=== PATIENT | female | born 1945 | race Two or more races ===

== ENCOUNTER 2020-06-23 17:09 | Inpatient (IN) | payer OTHER ==
[~2020-06-23] VITALS: Ht 154.9 cm; Wt 50.2 kg
[2020-06-23 18:32] LABS: Basophils # (auto) 0.1 10 ^3/uL (0-0.2); Basophils % (auto) 0.7 % (0.0-2.0); Eosinophils # (auto) 0 10 ^3/uL (0-0.8); Eosinophils % (auto) 0.4 % (0.0-7.0); Hematocrit 33.2 % (36.0-46.0); Lymphocytes # (auto) 1.2 10 ^3/uL (0.4-5.4); Lymphocytes % (auto) 13.2 % (10.0-50.0); Mean Corpuscular Hemoglobin 36.5 pg (28.0-32.0); Mean Corpuscular Hgb Conc. 33.2 g/dL (32.0-36.0); Mean Corpuscular Volume 109.9 fL (80.0-100.0); Monocytes # (auto) 0.6 10 ^3/uL (0-1.3); Monocytes % (auto) 6.5 % (0.0-12.0); Neutrophils # (auto) 6.9 10 ^3/uL (1.6-8.6); Neutrophils % (auto) 79.2 % (37.0-80.0); Nucleated Red Blood Cells % 0.1 %; Platelet Count (auto) 203 10^3/uL (140-450); Red Blood Cells 3.02 10^6/uL (4.0-5.20); Red Cell Distribution Width 15.1 % (11.8-14.3); White Blood Cell 8.7 10^3/uL (4.4-10.8)
[2020-06-23 18:51] LABS: Albumin 3.6 g/dL (3.4-5.0); Anion Gap 12 (5-15); Blood Urea Nitrogen 41 mg/dL (7-18); Calcium 8.5 mg/dL (8.5-10.1); Chloride 114 mmol/L (98-107); Glucose 105 mg/dL (74-106); Potassium 4.1 mmol/L (3.5-5.1); Sodium 135 mmol/L (136-145)
[2020-06-23 18:59] LABS: Alanine Aminotransferase 21 U/L (13-56); Alkaline Phosphatase 111 U/L (45-117); Aspartate Aminotransferase 23 U/L (15-37); Bilirubin, Total 0.2 mg/dL (0.2-1.0); GFR African American 19 mL/min; GFR Non-African American 15 mL/min
[2020-06-23 19:25] LABS: Carbon Dioxide 9 mmol/L (21-32)
[2020-06-23] MEDS ORDERED: SODIUM BICARBONATE 8.4 % INJ 50ML VIAL IV ONE ×2 (20:00)
[2020-06-23] MEDS ORDERED: SODIUM CHLORIDE 0.9% 1,000 ML IV ONE (20:15)
[2020-06-23 21:33] LABS: Urine Bacteria FEW /hpf (None Seen); Urine Blood 1+ /uL (Negative); Urine Specific Gravity 1.014 (1.001-1.035); Urine WBC 62 /hpf (0 - 5)
[2020-06-23] MEDS ORDERED: cefTRIAXone 1GM/50ML D5W 50 ML IV ONE (22:15)
[2020-06-23 22:21] LABS: INR 0.97 (0.9-1.15); Partial Thromboplastin Time 33.6 sec (23.0-31.2)
[2020-06-23] MEDS ORDERED: DOCUSATE SOD 100 MG CAP PO PRN (22:45)
[2020-06-23] MEDS ORDERED: SODIUM CHLORIDE 0.9% 1,000 ML IV SCH (22:45)
[2020-06-23] MEDS ORDERED: ONDANSETRON HCL 4 MG/2 ML VIAL IV PRN (22:45)
[2020-06-23] MEDS ORDERED: ACETAMINOPHEN 325 MG TAB PO PRN (22:45)
[2020-06-23] MEDS: cefTRIAXone 1GM/50ML D5W 50 ML IV SCH (22:45)
[2020-06-23 23:29] LABS: Amphetamine Screen, Urine NEGATIVE (NEGATIVE); Barbiturate Scree,Urine NEGATIVE (NEGATIVE); Benzodiazephine Screen, Urine NEGATIVE (NEGATIVE); Cannabinoid Screen, Urine NEGATIVE (NEGATIVE); Cocaine Screen, Urine NEGATIVE (NEGATIVE)
[2020-06-23 23:43] LABS: Alcohol, Urine < 3.0 mg/dL (0-10); Opiate Scree,Urine POSITIVE (NEGATIVE); Phencyclidine Screen, Urine NEGATIVE (NEGATIVE)
[2020-06-24] MEDS ORDERED: levETIRAcetam 500 MG/5ML INJ IV ONE (00:19)
[2020-06-24] MEDS ORDERED: LORazepam 2MG/ML-1ML VIAL IV PRN (01:45)
[2020-06-24 07:34] LABS: Basophils # (auto) 0 10 ^3/uL (0-0.2); Eosinophils # (auto) 0 10 ^3/uL (0-0.8); Hemoglobin 9.2 g/dL (12.2-16.2); Lymphocytes # (auto) 0.2 10 ^3/uL (0.4-5.4); Lymphocytes % (auto) 2.2 % (10.0-50.0); Monocytes # (auto) 0.4 10 ^3/uL (0-1.3); Neutrophils # (auto) 8.9 10 ^3/uL (1.6-8.6); Red Cell Distribution Width 14.7 % (11.8-14.3); White Blood Cell 9.5 10^3/uL (4.4-10.8)
[2020-06-24 07:35] LABS: Basophils % (auto) 0.5 % (0.0-2.0); Eosinophils % (auto) 0.4 % (0.0-7.0); Hematocrit 27.9 % (36.0-46.0); Mean Corpuscular Volume 109.2 fL (80.0-100.0); Monocytes % (auto) 4.1 % (0.0-12.0); Neutrophils % (auto) 92.8 % (37.0-80.0); Platelet Count (auto) 180 10^3/uL (140-450); Red Blood Cells 2.55 10^6/uL (4.0-5.20)
[2020-06-24 08:00] LABS: BUN/Creatinine Ratio 14.3; Calcium 7.8 mg/dL (8.5-10.1)
[2020-06-24 08:03] LABS: Potassium 2.6 mmol/L (3.5-5.1)
[2020-06-24] MEDS ORDERED: POTASSIUM CHLORIDE 60 MEQ, LIDOCAINE 1% (LOCAL ANESTH.) 6 ML in SODIUM CHL 0.9% 500 ML IV ONE (08:15)
[2020-06-24] MEDS: SODIUM BICARBONATE 50ML VIAL 50 ML in SOD CHL 0.45% 1,000 ML IV SCH ×2 (08:15→18:47)
[2020-06-24] MEDS ORDERED: CYANOCOBALAMIN 500 MCG TAB PO SCH (10:00)
[2020-06-24] MEDS: THIAMINE 100mg/ml INJ (200mg/2ml VIAL) IV SCH (10:00)
[2020-06-24 14:20] LABS: Folate (Folic Acid) 22.67 ng/mL (5.38-24)
[2020-06-24] MEDS ORDERED: SODIUM BICARBONATE 8.4 % INJ 50ML VIAL IV ONE (20:00)
[2020-06-24] MEDS: cefTRIAXone 1GM/50ML D5W 50 ML IV SCH (22:39)
[2020-06-25] MEDS: SODIUM BICARBONATE 50ML VIAL 50 ML in SOD CHL 0.45% 1,000 ML IV SCH (05:15)
[2020-06-25 07:33] LABS: Basophils # (auto) 0 10 ^3/uL (0-0.2); Basophils % (auto) 0.7 % (0.0-2.0); Eosinophils # (auto) 0.2 10 ^3/uL (0-0.8); Lymphocytes # (auto) 0.3 10 ^3/uL (0.4-5.4); Mean Corpuscular Hgb Conc. 34.8 g/dL (32.0-36.0); Monocytes # (auto) 0.5 10 ^3/uL (0-1.3); Monocytes % (auto) 11.1 % (0.0-12.0); Neutrophils # (auto) 3.6 10 ^3/uL (1.6-8.6); Platelet Count (auto) 187 10^3/uL (140-450); Red Blood Cells 2.41 10^6/uL (4.0-5.20); White Blood Cell 4.7 10^3/uL (4.4-10.8)
[2020-06-25 07:40] LABS: Eosinophils % (auto) 4.8 % (0.0-7.0); Hematocrit 25.3 % (36.0-46.0); Hemoglobin 8.8 g/dL (12.2-16.2); Lymphocytes % (auto) 6.5 % (10.0-50.0); Mean Corpuscular Hemoglobin 36.6 pg (28.0-32.0); Mean Corpuscular Volume 105.4 fL (80.0-100.0); Neutrophils % (auto) 76.9 % (37.0-80.0); Nucleated Red Blood Cells % 0.1 %; Red Cell Distribution Width 14.6 % (11.8-14.3)
[2020-06-25 07:53] LABS: Potassium 3.1 mmol/L (3.5-5.1)
[2020-06-25 08:06] LABS: Albumin 2.6 g/dL (3.4-5.0); BUN/Creatinine Ratio 11.8; Bilirubin, Total 0.2 mg/dL (0.2-1.0); Calcium 7.5 mg/dL (8.5-10.1); Magnesium 2.2 mg/dL (1.6-2.6); Total Protein 5.6 g/dL (6.4-8.2)
[2020-06-25] MEDS: THIAMINE 100mg/ml INJ (200mg/2ml VIAL) IV SCH (08:32)
[2020-06-25 13:00] VITALS: BP 156/70
[2020-06-25] MEDS: POTASSIUM CHL 20MEQ/100ML 100 ML IV SCH ×2 (14:12→17:45)
[2020-06-25] MEDS ORDERED: ERGOCALCIFEROL 50,000 UNIT(1.25MG) CAP PO SCH (14:15)
[2020-06-25] MEDS: SODIUM BICARBONATE 50ML VIAL 75 ML in D5W 5% 1,000 ML IV SCH ×2 (14:15→23:23)
[2020-06-25 16:41] VITALS: BP 149/73
[2020-06-25] MEDS: HYDROcodone-ACET 5/325MG TAB PO PRN (18:54)
[2020-06-25 22:00] VITALS: BP 160/73
[2020-06-25] MEDS: cefTRIAXone 1GM/50ML D5W 50 ML IV SCH (22:17)
[2020-06-25] MEDS ORDERED: TEMAZEPAM 15 MG CAP PO ONE (23:00)
[2020-06-26] MEDS: HYDROcodone-ACET 5/325MG TAB PO PRN ×3 (00:23→19:41)
[2020-06-26 05:22] VITALS: BP 151/63
[2020-06-26 07:09] LABS: Hematocrit 25.3 % (36.0-46.0); Hemoglobin 8.9 g/dL (12.2-16.2)
[2020-06-26 07:24] LABS: BUN/Creatinine Ratio 9.5; Calcium 7.7 mg/dL (8.5-10.1); Phosphorus 1.8 mg/dL (2.5-4.90)
[2020-06-26 07:48] LABS: Potassium 2.6 mmol/L (3.5-5.1)
[2020-06-26 08:00] VITALS: BP 142/70
[2020-06-26] MEDS ORDERED: POTASSIUM CHLORIDE 60 MEQ, LIDOCAINE 1% (LOCAL ANESTH.) 6 ML in SODIUM CHL 0.9% 500 ML IV ONE (08:15)
[2020-06-26] MEDS: THIAMINE 100mg/ml INJ (200mg/2ml VIAL) IV SCH (09:14)
[2020-06-26] MEDS: amLODIPine BESYLATE 5 MG TAB PO SCH (09:15)
[2020-06-26] MEDS: CHOLECALCIFEROL (VITD3) 2,000 UNIT CAP/TAB PO SCH (09:15)
[2020-06-26] MEDS ORDERED: POTASSIUM CHL 20MEQ/100ML 100 ML IV SCH (10:30)
[2020-06-26] MEDS ORDERED: POTASSIUM EFFERVESENT TAB 25 MEQ PO ONE (10:30)
[2020-06-26] MEDS ORDERED: SOD CHL 0.45% 1,000 ML IV SCH (10:30)
[2020-06-26] MEDS: SODIUM BICARBONATE 50ML VIAL 50 ML in D5W 5% 1,000 ML IV SCH ×2 (10:30→22:52)
[2020-06-26] MEDS ORDERED: NOREPINEPHRINE 8 MG/250ML KIT 250 ML IV ONE (15:55)
[2020-06-26 16:00] VITALS: BP 127/60
[2020-06-26 16:36] VITALS: BP 131/53
[2020-06-26] MEDS ORDERED: NORPTMEDS CO (19:23)
[2020-06-26] MEDS ORDERED: LORazepam 2MG/ML-1ML VIAL IV PRN (21:00)
[2020-06-26] MEDS: cefTRIAXone 1GM/50ML D5W 50 ML IV SCH (21:51)
[2020-06-26 22:00] VITALS: BP 157/78
[2020-06-27 05:00] VITALS: BP 133/54
[2020-06-27] MEDS: SODIUM BICARBONATE 50ML VIAL 50 ML in D5W 5% 1,000 ML IV SCH (06:39)
[2020-06-27 07:08] LABS: Hematocrit 27.5 % (36.0-46.0); Hemoglobin 9.6 g/dL (12.2-16.2)
[2020-06-27 07:21] LABS: BUN/Creatinine Ratio 10.1; Calcium 8.4 mg/dL (8.5-10.1); Magnesium 2.1 mg/dL (1.6-2.6); Potassium 3.8 mmol/L (3.5-5.1)
[2020-06-27 09:00] VITALS: BP 114/75
[2020-06-27] MEDS: THIAMINE 100mg/ml INJ (200mg/2ml VIAL) IV SCH (10:01)
[2020-06-27] MEDS: CHOLECALCIFEROL (VITD3) 2,000 UNIT CAP/TAB PO SCH (10:02)
[2020-06-27] MEDS: amLODIPine BESYLATE 5 MG TAB PO SCH (10:02)
[2020-06-27] MEDS: HYDROcodone-ACET 5/325MG TAB PO PRN ×3 (10:29→20:10)
[2020-06-27 12:09] LABS: Protein, Urine 62.8 mg/dL (0.0-11.9)
[2020-06-27 13:00] VITALS: BP 122/62
[2020-06-27] MEDS ORDERED: DIVA1TAB58 PO (14:26)
[2020-06-27] MEDS ORDERED: CEPH250C PO (14:26)
[2020-06-27] MEDS ORDERED: CHOL1CAP47 PO (14:26)
[2020-06-27] MEDS ORDERED: AML5T PO (14:26)
[2020-06-27 16:58] VITALS: BP 110/64
[2020-06-27 22:00] VITALS: BP 141/69
[2020-06-27] MEDS: cefTRIAXone 1GM/50ML D5W 50 ML IV SCH (22:45)
[2020-06-28] MEDS: HYDROcodone-ACET 5/325MG TAB PO PRN ×3 (04:26→17:29)
[2020-06-28 05:00] VITALS: BP 146/67
[2020-06-28 07:34] VITALS: BP 144/65
[2020-06-28] MEDS: THIAMINE 100mg/ml INJ (200mg/2ml VIAL) IV SCH (09:26)
[2020-06-28] MEDS: CHOLECALCIFEROL (VITD3) 2,000 UNIT CAP/TAB PO SCH (09:27)
[2020-06-28] MEDS: amLODIPine BESYLATE 5 MG TAB PO SCH (09:29)
[2020-06-28] MEDS ORDERED: MULT-351 PO (11:54)
[2020-06-28] MEDS ORDERED: AML5T PO (11:54)
[2020-06-28 12:49] VITALS: BP 125/63
[2020-06-28 16:35] VITALS: BP 128/58
[2020-06-28 16:57] VITALS: BP 144/65
== END 2020-06-28 17:35 | DRG 100 ==
LOC: EDBD 17:09 → ER 17:13 → TELE 17:14 → TELE-EAST 06-25 12:12
PROVIDERS: ADMIT Hospitalist; ATTEND Internal Medicine
DX: G40.909 Epilepsy, unspecified, not intractable, without status epilepticus (principal); N17.0 Acute kidney failure with tubular necrosis; E87.2 Acidosis; N39.0 Urinary tract infection, site not specified; R55 Syncope and collapse; E87.6 Hypokalemia; D50.9 Iron deficiency anemia, unspecified; G89.4 Chronic pain syndrome; J45.909 Unspecified asthma, uncomplicated; E55.9 Vitamin D deficiency, unspecified; B96.20 Unspecified Escherichia coli [E. coli] as the cause of diseases classified elsewhere; D53.9 Nutritional anemia, unspecified; Z20.822 Contact with and (suspected) exposure to COVID-19; I12.9 Hypertensive chronic kidney disease with stage 1 through stage 4 chronic kidney disease, or unspecified chronic kidney disease; N18.9 Chronic kidney disease, unspecified; Z91.19 Patient's noncompliance with other medical treatment and regimen
CPT/HCPCS: 36415; 36600; 70450; 70551; 71045; 72125; 72192; 76775; 80048; 80053; 80061; 80164; 80307; 81001; 82306; 82550; 82570; 82607; 82746; 82805; 83540; 83550; 83735; 83970; 84100; 84132; 84156; 84300; 84443; 84484; 85014; 85018; 85025; 85610; 85730; 87040; 87086; 87088; 87186; 87426; 93005; 95819; 97116; 97530; 99291; G0378; J0696; J2001; J3480; J7060